=== PATIENT | female | born 1975 | race Caucasian/White ===

== ENCOUNTER 2024-04-18 08:13 | Emergency (ER) | payer BC, SELFPAY ==
--- NOTE | ~2024-04-18 | XR_ITS ---
EXAMINATION: XR knee LT min 4V DATE: 04/18/2024 08:46 INDICATION: Left knee swelling. Fall. TECHNIQUE: 4 views of left knee were obtained. COMPARISON: None. FINDINGS: Bone alignment is normal. No fracture. There is mild tricompartmental osteoarthritis. No kn ee joint effusion. IMPRESSION: 1. Mild left knee osteoarthritis. Reviewed, dictated and finalized at location A.
[2024-04-18 08:25] VITALS: BP 103/70; PULSE 70; RESP 22; TEMP 36.8; O2SAT 100
--- NOTE | 2024-04-18 08:33 | ED.LOWEXIN ---
HPI - Extremity Injury (Lower) General Chief Complaint: Extremity Injury, Lower Stated Complaint: Fall Injury/Left Knee Time Seen by Provider: 04/18/24 08:33 Source: patient Mode of arrival: ambulatory Limitations: no limitations History of Present Illness HPI Narrative: 48-year-old female presents with complaint bruising and swelling to knee. Patient states that she tripped over a bag yesterday her house and fell forward onto left knee. Bruising and swelling worse this morning. States that left knee feels tight when walking. Pain worse with flexion. All systems reviewed and negative except as noted above. Related Data Allergies Allergy/AdvReac Type Severity Reaction Status Date / Time acetaminophen Allergy Unknown Verified 07/24/16 09:48 hydrocodone Allergy Unknown Verified 07/24/16 09:48 Review of Systems Review of Systems: CONSTITUTIONAL: Denies fever, chills, or sweats. EYES: Denies visual changes, redness, or discharge. ENT: Denies rhinorrhea, congestion, sore throat, or otalgia. CARDIOVASCULAR: Denies chest pain, palpitations, or edema. RESPIRATORY: Denies cough or dyspnea. GASTROINTESTINAL: Denies abdominal pain, nausea, vomiting, or diarrhea. GENITOURINARY: Denies dysuria or hematuria. SKIN: Denies rash or itching. MUSCULOSKELETAL: Reports bruising, swelling and pain to left knee. NEUROLOGIC: Denies headache, numbness, or weakness. PSYCHIATRIC: Denies anxiety or depression. All other systems reviewed are negative, except as documented in HPI. PMFSH Comments At time of signature, agree with nursing past medical, surgical, social and family history. There is no relevant family history pertinent to the presenting complaint. Exam Narrative: GENERAL: This is a well-nourished, well-developed patient, in no apparent distress. HEAD: normocephalic, atraumatic. EYES: PERRL. Sclera clear/white. Vision is grossly intact. EARS: External ears normal NOSE: External nose normal NECK: Neck supple, non-tender without lymphadenopathy, masses or thyromegaly. CARDIOVASCULAR: Regular rate and rhythm without murmurs, gallops, or rubs. RESPIRATORY: Clear to auscultation. Breath sounds equal bilaterally. No wheezes, rales, or rhonchi. SKIN: warm, Dry, intact with no suspicious lesions or rash, good texture and turgor. NEURO: awake, alert, and oriented to person, place and time. There were no obvious focal neurologic abnormalities. EXTREMITIES: Tenderness to anterior and medial aspect left knee with bruising, swelling. Decreased range of motion due to pain. Anterior and posterior drawer testing negative. Distal neurovascularly intact. Course Course Level of Care: Express Care Visit Vital Signs Vital signs: Vital Signs Temperature 36.8 C 04/18/24 08:25 Pulse Rate 70 04/18/24 08:25 Respiratory Rate 22 H 04/18/24 08:25 Blood Pressure 103/70 04/18/24 08:25 Pulse Oximetry 100 04/18/24 08:25 Oxygen Delivery Room Air 04/18/24 08:25 Temperature 36.8 C 04/18/24 08:25 Pulse Rate 70 04/18/24 08:25 Respiratory Rate 22 H 04/18/24 08:25 Blood Pressure 103/70 04/18/24 08:25 Pulse Oximetry 100 04/18/24 08:25 Oxygen Delivery Room Air 04/18/24 08:25 Reviewed MDM - Extremity Injury (Lower) MDM Narrative Medical decision making narrative: X-ray negative for fracture. Discussed with patient. Place an Himanshu wrap. Recommend rice. Will follow-up with primary care physician if pain not improving. Patient is aware of diagnosis, understands and agrees to treatment plan. Anticipatory guidance given. Patient agrees to follow-up as directed and is aware of reasons to seek care at the emergency department. Portions of this record may have been created with voice recognition software Imaging Data My impression: Agree with radiologist Radiologist's impression: EXAMINATION: XR knee LT min 4V DATE: 04/18/2024 08:46 INDICATION: Left knee swelling. Fall. TECHNIQUE: 4 views of lef
== END 2024-04-18 09:02 | disposition home or self-care (01) ==
PROVIDERS: Emergency Provider Nurse Practitioner Family; PCP Family Medicine
DX: S80.02XA Contusion of left knee, initial encounter (principal); W18.09XA Striking against other object with subsequent fall, initial encounter; M79.7 Fibromyalgia
CPT/HCPCS: 73564; 99213; G0463